=== PATIENT | male | born 1975 | race Hispanic/Latino ===

== ENCOUNTER 2022-08-30 13:27 | Emergency (ER) | payer SELFPAY ==
[~2022-08-30] VITALS: Ht 167.6 cm; Wt 98.0 kg
[2022-08-30] VITALS (8 sets, daily range): BP systolic 117–142; BP diastolic 54–80
[~2022-08-30 13:27] MED LIST: BACTRIM DS1 TAB PO; DOXYCYCL HYC100 MG PO; HYDROCORTISO2.51 EX; MINOCYCLINE100 MG PO; NAPROSYN500 MG PO; NAPROXEN500 MG PO; NO; TRAMADOL HCL50 MG PO
[2022-08-30] MEDS ORDERED: FLEXERIL5 M1 PO (15:08)
== END 2022-08-30 15:19 | disposition home or self-care (01) | DRG 552 ==
LOC: ED 13:27
DX: M54.50 Low back pain, unspecified (principal)